=== PATIENT | female | born 1935 | race Caucasian/White ===

== ENCOUNTER → 2016-08-16 | Outpatient (CLI) | payer MEDICARE, BC ==
[2016-08-16 10:20] LABS: Basophils # (A) 0.1 k/uL (0-0.2); Basophils % (A) 1 %; CH 30.4; CHCM 32.8; Eosinophils # (A) 0.4 k/uL (0-0.7); Eosinophils % (A) 5 %; HCT 35.1 % (34.0-46.0); HDW 2.79; HGB 11.3 gm/dL (11.4-16.0); Luc # (Auto) 0.21; Luc % (Auto) 3; Lymphocytes # (A) 1.8 k/uL (1.0-4.8); Lymphocytes % (A) 23 %; MCH 30.2 pg (25.0-35.0); MCHC 32.3 g/dL (31.0-37.0); MCV 93.3 fL (80.0-100.0); Mean Platelet Volume 8.7; Monocytes # (A) 0.4 k/uL (0-1.0); Monocytes % (A) 5 %; Neutrophils % (A) 63 %; RBC 3.76 m/uL (3.80-5.40); RDW 14.4 % (11.5-15.5); WBC 7.9 k/uL (3.8-10.6); WBC (Perox) 8.63
[2016-08-16 10:33] LABS: Calcium 9.3 mg/dL (8.4-10.2); Total Bilirubin 0.7 mg/dL (0.2-1.3); Total Protein 6.9 g/dL (6.3-8.2)
== END ==
LOC: LABWHC1 09:45
PROVIDERS: ATTEND Family Medicine
DX: E78.4 Other hyperlipidemia (principal)
CPT/HCPCS: 36415; 80053; 80061; 85025

== ENCOUNTER → 2016-09-21 | Outpatient (CLI) | payer MEDICARE, BC ==
[2016-09-21 10:06] LABS: Basophils % (A) 1 %; CH 29.9; CHCM 33.4; Eosinophils # (A) 0.3 k/uL (0-0.7); Eosinophils % (A) 4 %; HCT 33.8 % (34.0-46.0); HDW 2.93; HGB 11.1 gm/dL (11.4-16.0); Luc # (Auto) 0.17; Luc % (Auto) 2; Lymphocytes # (A) 1.7 k/uL (1.0-4.8); Lymphocytes % (A) 23 %; MCH 29.6 pg (25.0-35.0); MCHC 32.9 g/dL (31.0-37.0); MCV 90.1 fL (80.0-100.0); Mean Platelet Volume 7.5; Monocytes # (A) 0.4 k/uL (0-1.0); Monocytes % (A) 5 %; Neutrophils # (A) 4.9 k/uL (1.3-7.7); Neutrophils % (A) 66 %; RBC 3.75 m/uL (3.80-5.40); RDW 14.6 % (11.5-15.5); WBC 7.4 k/uL (3.8-10.6); WBC (Perox) 7.42
[2016-09-21 10:26] LABS: Appearance,Urine Clear (Clear); Bacteria,Urine Rare /hpf; Bilirubin,Urine Negative (Negative); Glucose,Urine (UA) Negative (Negative); Ketones,Urine Negative (Negative); Leukocyte Esterase,Urine Small (Negative); Mucus,Urine Rare /hpf; Nitrite,Urine Negative (Negative); PH, Urine 5.5 (5.0-8.0); Particle Count 2860; Protein,Urine 2+ (Negative); RBC,Urine 11 /hpf (0-5); Specific Gravity,Urine 1.013 (1.001-1.035); Squamous Epithelial Cell,Urine <1 /hpf (0-4); UA Billing (MACRO vs. MICRO) MICRO; Urobilinogen,Urine <2.0 mg/dL (<2.0); WBC,Urine 18 /hpf (0-5)
[2016-09-21 13:32] LABS: Calcium 9.2 mg/dL (8.4-10.2); Magnesium 2.1 mg/dL (1.6-2.3); Phosphorous 4.2 mg/dL (2.5-4.5); Potassium 4.5 mmol/L (3.5-5.1); Uric Acid 7.2 mg/dL (3.7-7.4)
[2016-09-22 04:02] LABS: Complement Total (CH50) 175 CAE (54-144)
[2016-09-22 07:21] LABS: ANA w/Reflex to Titer POSITIVE (NEGATIVE)
[2016-09-22 11:04] LABS: Free Kappa Lt Chain Qnt, Serum 13.64 mg/dL (0.33 - 1.94); Kappa/Lambda Light Chain Ratio 1.64 (0.26 - 1.65)
[2016-09-22 15:48] LABS: C-ANCA <1:20 Titer (<1:20); P-ANCA <1:20 Titer (<1:20)
[2016-09-22 16:18] LABS: Mis test requested (Non-blood) Urn Protein Electrop
== END | disposition home or self-care (01) ==
LOC: LABWHC1 09:15
PROVIDERS: ATTEND Nurse Practitioner Family
DX: E78.5 Hyperlipidemia, unspecified (principal); R68.89 Other general symptoms and signs; E55.9 Vitamin D deficiency, unspecified; R80.9 Proteinuria, unspecified; N18.3 Chronic kidney disease, stage 3 (moderate); D64.9 Anemia, unspecified; M10.9 Gout, unspecified; N39.0 Urinary tract infection, site not specified
CPT/HCPCS: 36415; 80048; 81001; 82306; 82550; 82728; 83516; 83540; 83550; 83735; 83883; 83970; 84100; 84166; 84443; 84450; 84460; 84550; 85025; 86038; 86039; 86160; 86162; 86225; 86255

== ENCOUNTER → 2016-12-22 | Outpatient (CLI) | payer MEDICARE, BC ==
[2016-12-22 15:41] LABS: Basophils # (A) 0.1 k/uL (0-0.2); Basophils % (A) 1 %; CH 29.7; Eosinophils # (A) 0.3 k/uL (0-0.7); Eosinophils % (A) 4 %; HCT 32.9 % (34.0-46.0); HDW 2.66; Luc # (Auto) 0.22; Luc % (Auto) 3; Lymphocytes # (A) 1.8 k/uL (1.0-4.8); Lymphocytes % (A) 26 %; MCH 30.5 pg (25.0-35.0); MCHC 33.6 g/dL (31.0-37.0); MCV 90.7 fL (80.0-100.0); Mean Platelet Volume 7.9; Monocytes # (A) 0.3 k/uL (0-1.0); Monocytes % (A) 4 %; Neutrophils # (A) 4.2 k/uL (1.3-7.7); Neutrophils % (A) 62 %; RBC 3.62 m/uL (3.80-5.40); RDW 14.1 % (11.5-15.5); WBC 6.9 k/uL (3.8-10.6); WBC (Perox) 7.72
[2016-12-22 15:54] LABS: Appearance,Urine Clear (Clear); Bacteria,Urine Occasional /hpf; Bilirubin,Urine Negative (Negative); Glucose,Urine (UA) Negative (Negative); Ketones,Urine Negative (Negative); Leukocyte Esterase,Urine Small (Negative); Mucus,Urine Rare /hpf; Nitrite,Urine Negative (Negative); PH, Urine 5.5 (5.0-8.0); Particle Count 4061; Protein,Urine 2+ (Negative); Specific Gravity,Urine 1.011 (1.001-1.035); Squamous Epithelial Cell,Urine 1 /hpf (0-4); UA Billing (MACRO vs. MICRO) MICRO; Urobilinogen,Urine <2.0 mg/dL (<2.0); WBC,Urine 18 /hpf (0-5)
[2016-12-22 16:11] LABS: Calcium 9.3 mg/dL (8.4-10.2); Phosphorous 4.4 mg/dL (2.5-4.5); Potassium 5.2 mmol/L (3.5-5.1); Uric Acid 7.1 mg/dL (3.7-7.4)
[2016-12-22 16:19] LABS: % Iron Saturation 21.5 % (20-50)
== END | disposition home or self-care (01) ==
LOC: LABWHC1 15:03
PROVIDERS: ATTEND Nurse Practitioner Family
DX: D64.9 Anemia, unspecified (principal); E55.9 Vitamin D deficiency, unspecified; N18.3 Chronic kidney disease, stage 3 (moderate); M10.9 Gout, unspecified; N39.0 Urinary tract infection, site not specified
CPT/HCPCS: 36415; 80048; 81001; 82306; 82728; 83540; 83550; 83735; 83970; 84100; 84550; 85025

== ENCOUNTER 2017-10-10 22:10 | Emergency (ER) | payer MEDICARE, BC ==
--- NOTE | 2017-10-10 22:42 | ED ---
General Adult HPI - General Chief complaint: Chest Pain Stated complaint: Chest Pain Time Seen by Provider: 10/10/17 22:17 Source: patient, RN notes reviewed, old records reviewed Mode of arrival: ambulatory Limitations: no limitations - History of Present Illness Initial comments: 81-year-old female presents with chief complaint of chest pain. Pain began actually one hour prior to arrival. Began while the patient was taking a shower. She has recent history of repair of abdominal aortic aneurysm. This was repaired endovascularly at [facility]. Patient is postop approximately 2 weeks. She has been doing well since the surgery. She is not currently on any blood thinners and chest pain is described as a dull ache, however it worsened significantly with deep inspiration. Pain becomes sharp with deep inspiration and does radiate to her back. Denies any significant cough. Denies fever or chills. Denies nausea vomiting or diarrhea. Patient took nitroglycerin at home with minimal relief. She does have history of angina. According to the patient she has no known history of CAD. Recently quit smoking. - Related Data Home Medications Medication Instructions Recorded Confirmed Acetaminophen Tab [Tylenol Tab] 325 - 650 mg PO Q4H PRN 02/20/16 02/20/16 Rosuvastatin Calcium [Crestor] 10 mg PO HS 02/20/16 02/20/16 hydrALAZINE HCL 25 mg PO BID 02/20/16 02/20/16 Previous Rx's Medication Instructions Recorded Gabapentin [Neurontin] 100 mg PO BID #60 cap 02/20/16 valACYclovir HCL [Valacyclovir] 1,000 mg PO TID #21 tab 02/20/16 Allergies Allergy/AdvReac Type Severity Reaction Status Date / Time nitrofurantoin Allergy Unknown Verified 10/10/17 22:15 [From Macrobid] nitrofurantoin Allergy Unknown Verified 10/10/17 22:15 macrocrystalline [From Macrobid] Sulfa (Sulfonamide Allergy Unknown Verified 10/10/17 22:15 Antibiotics) Review of Systems ROS Statement: Those systems with pertinent positive or pertinent negative responses have been documented in the HPI. ROS Other: All systems not noted in ROS Statement are negative. Past Medical History Past Medical History: Coronary Artery Disease (CAD), Chest Pain / Angina, GERD/ Reflux, Hyperlipidemia, Hypertension, Renal Disease Additional Past Medical History / Comment(s): Pt has 3.5cm aortic aneurysm being monitored, nephrolithiasis, diverticulosis. History of Any Multi-Drug Resistant Organisms: None Reported Past Surgical History: Adenoidectomy, Appendectomy, Bowel Resection, Cholecystectomy, Orthopedic Surgery, Tonsillectomy Additional Past Surgical History / Comment(s): Bowel resection x2 due to diverticular dx, Cardiac cath 2008 and 07/09/10 with triple vessel disease treated medically, L knee surgery with joint "cleaned up", colonoscopies with polypectomies-benign, L breast negative cone bx. Stent placed in aorta Past Anesthesia/Blood Transfusion Reactions: No Reported Reaction Additional Past Anesthesia/Blood Transfusion Reaction / Comment(s): Pt has clausterphobia. Past Psychological History: No Psychological Hx Reported Smoking Status: Current some day smoker Past Alcohol Use History: Rare Past Drug Use History: None Reported - Past Family History Father Family Medical History: No Reported History Additional Family Medical History / Comment(s): Father was healthy. He in a MVA at the age of 66 yrs. Mother Family Medical History: Hypertension, Renal Disease Additional Family Medical History / Comment(s): Mother of renal failure at the age of 75 yrs. Sister(s) Family Medical History: Cancer Additional Family Medical History / Comment(s): Pt has 3 sisters and 1 living sister. They have had aortic aneurysms and cancers. General Exam Limitations: no limitations General appearance: alert, in no apparent distress Head exam: Present: atraumatic, normocephalic Eye exam: Present: normal appearance, PERRL, EOMI ENT exam: Present: normal exam Neck exam: Present: normal inspection. Absent: tenderness, meningismus Respiratory exam: Present: normal lung sounds bilaterally. Absent: respiratory distress, wheezes Cardiovascular Exam: Present: regular rate, normal rhythm GI/Abdominal exam: Present: soft. Absent: distended, tenderness, guarding Extremities exam: Present: normal inspection, normal capillary refill, other ( Bilateral femoral pulses 2+, mild ecchymosis at the left groin). Absent: pedal edema Back exam: Present: normal inspection, full ROM. Absent: tenderness Neurological exam: Present: alert, oriented X3, CN II-XII intact. Absent: motor sensory deficit Psychiatric exam: Present: normal affect, normal mood Skin exam: Present: warm, dry Course Vital Signs 10/10/17 10/10/17 10/11/17 22:13 23:32 00:24 Temperature 99.4 F 100.1 F H Pulse Rate 67 65 66 Respiratory 18 18 18 Rate Blood Pressure 127/59 129/61 138/69 O2 Sat by Pulse 99 97 97 Oximetry 10/11/17 01:18 Temperature Pulse Rate 65 Respiratory 20 Rate Blood Pressure 134/64 O2 Sat by Pulse 97 Oximetry - Reevaluation(s) Reevaluation #1: 10/11/17 0030 Reevaluation, patient's pain is improved. Currently waiting for call back from [facility]. Reevaluation #2: 10/11/[address] Jimenez, from [facility] vascular surgery. She was able to review some of the medical record with me. Patient had a normal stress test approximately 4 weeks ago. She did have diagnosis of type II, I on September 30 with an elevated troponin at 1.4. Creatinine is at baseline according to medical record. EKG Findings - EKG Comments: EKG Findings:: EKG shows normal sinus rhythm, ventricular rate 63, NJ interval 160, QRS duration 72, QTC 403, no ST segment elevation Medical Decision Making - Medical Decision Making 81-year-old female who is 2 weeks postop endovascular repair of abdominal aortic aneurysm. She is presenting with chest pain and dyspnea. She has had a mild cough which is nonproductive. No fever. X-rays obtained, there is new bilateral lower atelectasis, focal consolidation in the left lung base. There is small bilateral [place] [address]. Troponin is elevated 0.137. Heparin is held as patient is recently postoperative from abdominal aortic aneurysm repair. She was evaluated at [facility] for retroperitoneal bleed. According to Dr. Jimenez, this was negative. Given the recent surgical intervention, patient will be transferred to [facility] for further evaluation and treatment. Patient will be transferred to the ER, accepting physician Dr. Mijares. Given the small focal consolidation on x-ray, patient does receive a dose of broad-spectrum antibiotics for healthcare associated pneumonia as well. She is given aspirin and Lasix in the emergency department. - Lab Data Result diagrams: 10/10/17 22:50 10/10/17 22:50 Lab Results 10/10/17 10/10/17 10/10/17 Range/Units 22:50 22:50 22:50 WBC 9.2 (3.8-10.6) k/uL RBC 3.09 L (3.80-5.40) m/uL Hgb 9.4 L (11.4-16.0) gm/dL Hct 27.9 L (34.0-46.0) % MCV 90.3 (80.0-100.0) fL MCH 30.3 (25.0-35.0) pg MCHC 33.5 (31.0-37.0) g/dL RDW 13.1 (11.5-15.5) % Plt Count 422 (150-450) k/uL Neutrophils % 74 % Lymphocytes % 16 % Monocytes % 5 % Eosinophils % 4 % Basophils % 0 % Neutrophils # 6.8 (1.3-7.7) k/uL Lymphocytes # 1.4 (1.0-4.8) k/uL Monocytes # 0.5 (0-1.0) k/uL Eosinophils # 0.3 (0-0.7) k/uL Basophils # 0.0 (0-0.2) k/uL PT (9.0-12.0) sec INR (<1.2) APTT (22.0-30.0) sec Sodium 139 (137-145) mmol/L Potassium 5.0 (3.5-5.1) mmol/L Chloride 104 (98-107) mmol/L Carbon Dioxide 21 L (22-30) mmol/L Anion Gap 14 mmol/L BUN 30 H (7-17) mg/dL Creatinine 2.00 H (0.52-1.04) mg/dL Est GFR (CKD-EPI)AfAm 27 (>60 ml/min/1.73 sqM) Est GFR (CKD-EPI)NonAf 23 (>60 ml/min/1.73 sqM) Glucose 100 H (74-99) mg/dL Plasma Lactic Acid Booker (0.7-2.0) mmol/L Calcium 9.0 (8.4-10.2) mg/dL Magnesium 1.9 (1.6-2.3) mg/dL Total Bilirubin 0.3 (0.2-1.3) mg/dL AST 43 H (14-36) U/L ALT 71 H (9-52) U/L Alkaline Phosphatase 92 (38-126) U/L Total Creatine Kinase 39 (30-135) U/L CK-MB (CK-2) 1.0 (0.0-2.4) ng/mL CK-MB (CK-2) Rel Index 2.6 Troponin I 0.137 H* (0.000-0.034) ng/mL NT-Pro-B Natriuret Pep pg/mL Total Protein 5.9 L (6.3-8.2) g/dL Albumin 2.9 L (3.5-5.0) g/dL Lipase 74 (23-300) U/L Influenza Type A RNA (Not Detectd) Influenza Type B (PCR) (Not Detectd) 10/10/17 10/10/17 10/11/17 Range/Units 22:50 22:50 00:25 WBC (3.8-10.6) k/uL RBC (3.80-5.40) m/uL Hgb (11.4-16.0) gm/dL Hct (34.0-46.0) % MCV (80.0-100.0) fL MCH (25.0-35.0) pg MCHC (31.0-37.0) g/dL RDW (11.5-15.5) % Plt Count (150-450) k/uL Neutrophils % % Lymphocytes % % Monocytes % % Eosinophils % % Basophils % % Neutrophils # (1.3-7.7) k/uL Lymphocytes # (1.0-4.8) k/uL Monocytes # (0-1.0) k/uL Eosinophils # (0-0.7) k/uL Basophils # (0-0.2) k/uL PT 10.5 (9.0-12.0) sec INR 1.1 (<1.2) APTT 23.9 (22.0-30.0) sec Sodium (137-145) mmol/L Potassium (3.5-5.1) mmol/L Chloride (98-107) mmol/L Carbon Dioxide (22-30) mmol/L Anion Gap mmol/L BUN (7-17) mg/dL Creatinine (0.52-1.04) mg/dL Est GFR (CKD-EPI)AfAm (>60 ml/min/1.73 sqM) Est GFR (CKD-EPI)NonAf (>60 ml/min/1.73 sqM) Glucose (74-99) mg/dL Plasma Lactic Acid Booker (0.7-2.0) mmol/L Calcium (8.4-10.2) mg/dL Magnesium (1.6-2.3) mg/dL Total Bilirubin (0.2-1.3) mg/dL AST (14-36) U/L ALT (9-52) U/L Alkaline Phosphatase (38-126) U/L Total Creatine Kinase (30-135) U/L CK-MB (CK-2) (0.0-2.4) ng/mL CK-MB (CK-2) Rel Index Troponin I (0.000-0.034) ng/mL NT-Pro-B Natriuret Pep 97136 pg/mL Total Protein (6.3-8.2) g/dL Albumin (3.5-5.0) g/dL Lipase (23-300) U/L Influenza Type A RNA Not Detected (Not Detectd) Influenza Type B (PCR) Not Detected (Not Detectd) 10/11/17 Range/Units 00:25 WBC (3.8-10.6) k/uL RBC (3.80-5.40) m/uL Hgb (11.4-16.0) gm/dL Hct (34.0-46.0) % MCV (80.0-100.0) fL MCH (25.0-35.0) pg MCHC (31.0-37.0) g/dL RDW (11.5-15.5) % Plt Count (150-450) k/uL Neutrophils % % Lymphocytes % % Monocytes % % Eosinophils % % Basophils % % Neutrophils # (1.3-7.7) k/uL Lymphocytes # (1.0-4.8) k/uL Monocytes # (0-1.0) k/uL Eosinophils # (0-0.7) k/uL Basophils # (0-0.2) k/uL PT (9.0-12.0) sec INR (<1.2) APTT (22.0-30.0) sec Sodium (137-145) mmol/L Potassium (3.5-5.1) mmol/L Chloride (98-107) mmol/L Carbon Dioxide (22-30) mmol/L Anion Gap mmol/L BUN (7-17) mg/dL Creatinine (0.52-1.04) mg/dL Est GFR (CKD-EPI)AfAm (>60 ml/min/1.73 sqM) Est GFR (CKD-EPI)NonAf (>60 ml/min/1.73 sqM) Glucose (74-99) mg/dL Plasma Lactic Acid Booker <0.5 L (0.7-2.0) mmol/L Calcium (8.4-10.2) mg/dL Magnesium (1.6-2.3) mg/dL Total Bilirubin (0.2-1.3) mg/dL AST (14-36) U/L ALT (9-52) U/L Alkaline Phosphatase (38-126) U/L Total Creatine Kinase (30-135) U/L CK-MB (CK-2) (0.0-2.4) ng/mL CK-MB (CK-2) Rel Index Troponin I (0.000-0.034) ng/mL NT-Pro-B Natriuret Pep pg/mL Total Protein (6.3-8.2) g/dL Albumin (3.5-5.0) g/dL Lipase (23-300) U/L Influenza Type A RNA (Not Detectd) Influenza Type B (PCR) (Not Detectd) Disposition Clinical Impression: NSTEMI (non-ST elevated myocardial infarction), Healthcare-associated pneumonia , New onset of congestive heart failure Disposition: OTHER INSTITUTION NOT DEFINED Condition: Stable Is patient prescribed a controlled substance at d/c from ED?: No Referrals: Robbi Mcdermott MD [Primary Care Provider] - 1-2 days Time of Disposition: 02:09 - Out of Hospital Transfer - Req. Specs Out of Hospital Transfer - Requested Specifics: Other Emergency Center ( Transferred to [facility])
[2017-10-10 23:08] LABS: Basophils % (A) 0 %; Eosinophils # (A) 0.3 k/uL (0-0.7); Eosinophils % (A) 4 %; HCT 27.9 % (34.0-46.0); HGB 9.4 gm/dL (11.4-16.0); Lymphocytes # (A) 1.4 k/uL (1.0-4.8); Lymphocytes % (A) 16 %; MCH 30.3 pg (25.0-35.0); MCHC 33.5 g/dL (31.0-37.0); MCV 90.3 fL (80.0-100.0); Mean Platelet Volume 8.1; Monocytes # (A) 0.5 k/uL (0-1.0); Monocytes % (A) 5 %; Neutrophils # (A) 6.8 k/uL (1.3-7.7); Neutrophils % (A) 74 %; Platelet Count 422 k/uL (150-450); RBC 3.09 m/uL (3.80-5.40); RDW 13.1 % (11.5-15.5); WBC 9.2 k/uL (3.8-10.6)
--- NOTE | 2017-10-10 23:10 | XR ---
EXAMINATION TYPE: XR chest 2V DATE OF EXAM: 10/10/2017 COMPARISON: February 20, 2016 HISTORY: Chest pain TECHNIQUE: Frontal and lateral views of the chest are obtained. FINDINGS: There is a 3 cm area of infiltrate at the lateral left lung base. There is slight blunting of the posterior costophrenic angles. There is no gross heart failure. There are chest leads. There is mild linear density in the right midlung. IMPRESSION: New bilateral subsegmental atelectasis. New area of focal consolidation at the lateral l eft lung base. Small bilateral pleural effusions. No heart failure. Pulmonary abnormalities are mostl y new compared to old exam.
[2017-10-10 23:18] LABS: INR 1.1 (<1.2); Partial Thromboplastin Time 23.9 sec (22.0-30.0); Prothrombin Time 10.5 sec (9.0-12.0)
[2017-10-10 23:27] LABS: Albumin 2.9 g/dL (3.5-5.0); Magnesium 1.9 mg/dL (1.6-2.3); Total Bilirubin 0.3 mg/dL (0.2-1.3); Total Protein 5.9 g/dL (6.3-8.2)
[2017-10-10] MEDS ORDERED: FUROSEMIDE 10 MG/ML 2 ML VIAL IV STA (23:55)
[2017-10-10] MEDS ORDERED: ASPIRIN 325 MG TAB PO STA (23:56)
[2017-10-11 00:06] LABS: Troponin I 0.137 ng/mL (0.000-0.034)
[2017-10-11] MEDS ORDERED: VANCOMYCIN 1,000 MG in SODIUM CHLORIDE 0.9% 250 ML IVPB STA (01:39)
[2017-10-11] MEDS ORDERED: CEFEPIME 2 GM in SODIUM CHLORIDE 0.9% 50 ML IVPB STA (01:39)
[2017-10-11 02:08] VITALS: BP 120/57; PULSE 64; RESP 18; TEMP 99.3
== END 2017-10-11 02:35 | disposition other institution (70) ==
LOC: EC 22:10
DX: I21.4 Non-ST elevation (NSTEMI) myocardial infarction (principal); J18.9 Pneumonia, unspecified organism; I11.0 Hypertensive heart disease with heart failure; I50.9 Heart failure, unspecified; R79.89 Other specified abnormal findings of blood chemistry; I25.119 Atherosclerotic heart disease of native coronary artery with unspecified angina pectoris; E78.5 Hyperlipidemia, unspecified; F17.200 Nicotine dependence, unspecified, uncomplicated; Z86.79 Personal history of other diseases of the circulatory system; Z79.899 Other long term (current) drug therapy; Z88.1 Allergy status to other antibiotic agents; Z88.2 Allergy status to sulfonamides; Z95.828 Presence of other vascular implants and grafts; Z95.5 Presence of coronary angioplasty implant and graft; Z53.8 Procedure and treatment not carried out for other reasons
CPT/HCPCS: 99285 ×2; 96365 ×2; 96375 ×2; 36415 ×2; 93005; 83880; 80053; 82550; 82553; 83605; 83690; 83735; 84484; 85025; 85610; 85730; 87040; 87502; 71046; J1940; J0692

== ENCOUNTER → 2018-08-30 | Day surgery (SDC) | payer MEDICARE, BC ==
[2018-08-28 11:17] VITALS: BMI 24.4
[~2018-08-30] MED LIST: SIMETHICONE 40 MG/0.6 ML DROPS 2,000 MG/30 ML BOTTLE PO ONE
== END ==
LOC: ORWHC2ENDO 06:52
PROVIDERS: ATTEND Internal Medicine
DX: D50.9 Iron deficiency anemia, unspecified (principal)
CPT/HCPCS: 91110

== ENCOUNTER 2021-02-19 05:32 | Emergency (ER) | payer MEDICARE, BC ==
[2021-02-19 05:40] VITALS: RESP 18; TEMP 97.5
--- NOTE | 2021-02-19 06:07 | ED ---
Fall HPI - General Chief Complaint: Fall Stated Complaint: Fall Time Seen by Provider: 02/19/21 05:35 Source: patient, EMS, RN notes reviewed, old records reviewed Mode of arrival: EMS - History of Present Illness Initial Comments: This is an 85-year-old female to the emergency department today. Patient presents status post fall. Fall with back pain upper shoulder pain right lower back pain. Patient also hit her head. No nausea vomiting. No chest pain or shortness of breath. No other complaints. Follows mechanical in nature. Patient is from [facility] use the bathroom when fall occurred. Patient's brought in by EMS MD Complaint: fall -: hour(s) Fall From: standing When Fall Occurred: 1 hour [employer] Fall Witnessed: no Place Fall Occurred: home Loss of Consciousness: none Prolonged Down Time?: no Symptoms Prior to Fall: none Location: head, back Severity scale (1-10): 4 Quality: dull Context: tripped/slipped Associated Symptoms: denies - Related Data Home Medications Medication Instructions Recorded Confirmed Acetaminophen Tab [Tylenol Tab] 325 - 650 mg PO Q4H PRN 02/20/16 08/28/18 hydrALAZINE HCL 25 mg PO TID 02/20/16 08/28/18 Atorvastatin [Lipitor] 40 mg PO DAILY 08/28/18 08/28/18 Cannabidiol (Cbd) [Epidiolex] 0.5 applicator PO DAILY 08/28/18 08/28/18 Cholecalciferol [Vitamin D3] 50 mcg PO DAILY 08/28/18 08/28/18 calcitrioL [Rocaltrol] 0.25 mcg PO TUSA 08/28/18 08/28/18 traMADol HCL [Ultram] 50 mg PO Q6HR PRN 08/28/18 08/28/18 Allergies Allergy/AdvReac Type Severity Reaction Status Date / Time nitrofurantoin Allergy Rash/Hives Verified 02/19/21 05:46 [From Macrobid] nitrofurantoin Allergy Rash/Hives Verified 02/19/21 05:46 macrocrystalline [From Macrobid] Sulfa (Sulfonamide Allergy Rash/Hives Verified 02/19/21 05:46 Antibiotics) Review of Systems ROS Statement: Those systems with pertinent positive or pertinent negative responses have been documented in the HPI. ROS Other: All systems not noted in ROS Statement are negative. Past Medical History Past Medical History: Coronary Artery Disease (CAD), Chest Pain / Angina, GERD/Reflux, Hyperlipidemia, Hypertension, Renal Disease Additional Past Medical History / Comment(s): having black stools for 2 mos, generalized pain with bowel movements,aortic aneurysm being monitored, nephrolithiasis, diverticulosis. History of Any Multi-Drug Resistant Organisms: None Reported Past Surgical History: Adenoidectomy, Appendectomy, Bowel Resection, Cholecystectomy, Orthopedic Surgery, Tonsillectomy Additional Past Surgical History / Comment(s): Bowel resection x2 due to diverticular dx, Cardiac cath 2008 and 07/09/10 with triple vessel disease treated medically, L knee surgery with joint "cleaned up", colonoscopies with polypectomies-benign, L breast negative cone bx. Stent placed in aorta Past Anesthesia/Blood Transfusion Reactions: No Reported Reaction Additional Past Anesthesia/Blood Transfusion Reaction / Comment(s): Pt has claustrophobia. Past Psychological History: No Psychological Hx Reported Past Alcohol Use History: Rare Past Drug Use History: None Reported - Past Family History Father Family Medical History: No Reported History Additional Family Medical History / Comment(s): Father was healthy. He in a MVA at the age of 66 yrs. Mother Family Medical History: Hypertension, Renal Disease Additional Family Medical History / Comment(s): Mother of renal failure at the age of 75 yrs. Sister(s) Family Medical History: Cancer Additional Family Medical History / Comment(s): Pt has 3 sisters and 1 living sister. 2 have had aortic aneurysms and 2 sisters w/ cancers. General Exam Limitations: no limitations General appearance: alert, in no apparent distress Head exam: Present: atraumatic, normocephalic, normal inspection Eye exam: Present: normal appearance, PERRL, EOMI. Absent: scleral icterus, conjunctival injection, periorbital swelling ENT exam: Present: normal exam, mucous membranes moist Neck exam: Present: normal inspection. Absent: tenderness, meningismus, lymphadenopathy Respiratory exam: Present: normal lung sounds bilaterally. Absent: respiratory distress, wheezes, rales, rhonchi, stridor Cardiovascular Exam: Present: regular rate, normal rhythm, normal heart sounds. Absent: systolic murmur, diastolic murmur, rubs, gallop, clicks GI/Abdominal exam: Present: soft, normal bowel sounds. Absent: distended, tenderness, guarding, rebound, rigid Extremities exam: Present: normal inspection, full ROM, normal capillary refill. Absent: tenderness, pedal edema, joint swelling, calf tenderness Back exam: Present: normal inspection Neurological exam: Present: alert, oriented X3, CN II-XII intact Psychiatric exam: Present: normal affect, normal mood Skin exam: Present: warm, dry, intact, normal color. Absent: rash Course Vital Signs 02/19/21 02/19/21 02/19/21 05:34 06:49 09:09 Temperature 97.5 F L Pulse Rate 62 64 64 Respiratory 18 18 18 Rate Blood Pressure 176/83 147/97 153/70 O2 Sat by Pulse 98 97 97 Oximetry - Reevaluation(s) Reevaluation #1: 02/19/21 06:21 Medical record is reviewed Reevaluation #2: 02/19/21 Symptoms are significantly improved here in the ER Patient feels good for discharge home Medical Decision Making - Medical Decision Making 85 female DF for evaluation of back pain severe back pain upper and lower after fall. No injuries noted on imaging and patient can be discharged home - Radiology Data Radiology results: report reviewed (CT brain C-spine x-rays back and pelvis is negative for acute disease), image reviewed Disposition Clinical Impression: Fall Disposition: HOME SELF-CARE Condition: Good Instructions (If sedation given, give patient instructions): Fall Prevention for Older Adults (ED) Is patient prescribed a controlled substance at d/c from ED?: No Referrals: Robbi Mcdermott MD [Primary Care Provider] - 1-2 days
[2021-02-19] MEDS ORDERED: Acetaminophen-Codeine 300-30mg TAB PO STA (06:20)
[2021-02-19] MEDS ORDERED: IBUPROFEN 600 MG TAB PO STA (06:20)
[2021-02-19 06:50] VITALS: PULSE 64
--- NOTE | 2021-02-19 07:00 | XR ---
EXAMINATION TYPE: XR pelvis AP view DATE OF EXAM: 02/19/2021 CLINICAL HISTORY: Fall injury with pain TECHNIQUE: A single AP view of the pelvis is obtained. COMPARISON: CT pelvis June 17, 2014. FINDINGS: Exam slightly suboptimal due to body habitus and lucency from overlying bowel gas. There is no displaced pelvic fracture clearly evident . Bkeg-xn-kjdgewnu axial joint space loss in both hips with mild acetabular spurring. Pubic symphysis is intact. Sacroiliac joints are well-preserved. Overl clint aortobiiliac stent graft is now present. Scattered pelvic phleboliths. Bilateral groin vascular calcification. Cholecystectomy clips. Stable 7 mm calculus lower pole left kidney. IMPRESSION: There is no displaced fracture clearly evident in the pelvis.
--- NOTE | 2021-02-19 07:03 | XR ---
EXAMINATION TYPE: XR chest 1V DATE OF EXAM: 02/19/2021 COMPARISON: Chest x-ray October 10, 2017 HISTORY: Fall injury with pain. TECHNIQUE: Single AP portable frontal upright view of the chest is obtained. FINDINGS: There is new large bore right internal jugular dialysis catheter with leads terminating le mathieu of cavoatrial junction. Persistent cardiomegaly with atherosclerotic and aneurysmal thoracic aort a causing right-sided tracheal deviation on current study. New Descending thoracic aortic stent graft and overlying central metallic density of uncertain etiology. There are small to moderate-sized bila teral pleural effusions and [id number] interstitial edema. There is associated compressive atel ectasis. Underlying scoliosis is present. No pneumothorax seen bilaterally. IMPRESSION: Correlate for CHF exacerbation or fluid overload state as there is cardiomegaly with sma ll to moderate-sized bilateral pleural effusions and mild/moderate bilateral interstitial edema felt Present.
--- NOTE | 2021-02-19 07:06 | CT ---
EXAMINATION TYPE: CT brain cspine wo con DATE OF EXAM: 02/19/2021 COMPARISON: CT brain February 20, 2016 HISTORY: Fall injury with headache and neck pain. CT DLP: 1273.2 mGycm. Automated Exposure Control for Dose Reduction was Utilized. TECHNIQUE: CT scan of the head and cervical spine are performed without contrast. FINDINGS: There is no acute intracranial hemorrhage or midline shift identified. Mild to moderate v entricular and sulcal prominence. Mild to moderate low-attenuation in the deep and periventricular w shlomo matter. Some interval progression of both findings from 2016 CT. The calvarium is intact. The gl obes are intact and the visualized sinuses are clear. Cervical spine is visualized in its entirety from C1 through upper thoracic levels and demonstrates d extroconvex scoliotic curvature or positioning centered upper thoracic spine without evidence of acut e fracture or dislocation. Prevertebral soft tissue appears within normal limits. The C1-C2 articul ation is within normal limits on the coronal images. There is grade 1 retrolisthesis C5 on C6 and C6 on C7 and slight grade 1 anterolisthesis C3 on C4. Moderate disc space narrowing and spurring C5-C6 and C6-C7 levels with posterior spur disc complexes effacing the anterior thecal sac. Axial images sh ow multilevel uncovertebral facet degenerative changes for reference bilateral C3-C4 level. Marginal spurring causes asymmetric moderate to advanced left-sided neural foraminal narrowing at C5-C6 and C6 -C7 levels. Heterogeneous slightly prominent thyroid gland is present. There is partial visualization of pleural effusions extending to the lung apices right larger than left. IMPRESSION: 1. There is no acute fracture or dislocation evident in the cervical spine. 2. No acute intracranial hemorrhage or midline shift is seen.
[2021-02-19] MEDS ORDERED: FUROSEMIDE 40 MG TAB PO STA (07:24)
[2021-02-19 09:12] VITALS: BP 153/70
== END 2021-02-19 09:12 | disposition home or self-care (01) ==
LOC: EC 05:32
DX: M54.5 Low back pain (principal); I10 Essential (primary) hypertension; I25.10 Atherosclerotic heart disease of native coronary artery without angina pectoris; K21.9 Gastro-esophageal reflux disease without esophagitis; E78.5 Hyperlipidemia, unspecified; Z88.2 Allergy status to sulfonamides; Z88.1 Allergy status to other antibiotic agents; Z90.89 Acquired absence of other organs; Z90.49 Acquired absence of other specified parts of digestive tract; Z87.442 Personal history of urinary calculi
CPT/HCPCS: 70450; 71045; 72125; 72170; 80053; 84145; 85025; 99284